=== PATIENT | female | born 1950 | race Caucasian/White ===

== ENCOUNTER 2016-11-16 01:58 | Inpatient (IN) | payer MEDICARE, BC ==
[~2016-11-16] VITALS: Ht 154.9 cm; Wt 81.0 kg
--- NOTE | ~2016-11-16 | OR ---
PATIENT'S NAME: MANJULA MORA [facility] AGE: 66 Y [address] ROOM: [place] [address] LOCATION: [facility] ADMIT DATE: 11/16/2016 OR/Procedure Report DISCHARGE DATE: FAMILY PHYSICIAN: PHYSICIAN, UNKNOWN ATTENDING PHYSICIAN: MILA LEDEZMA SURGEON: Mila Ledezma MD TAFE TEACHER: Griffin Salazar PA-C. DATE OF PROCEDURE: 11/16/2016 PREOPERATIVE DIAGNOSIS: Right 4-part proximal humerus fracture with displacement. POSTOPERATIVE DIAGNOSIS: Right 4-part proximal humerus fracture with displacement. PROCEDURE: 1. Open reduction and internal fixation of right 4-part (humeral head, neck, tuberosities)proximal humerus fracture. 2. Use of intraoperative fluoroscopy, less than 1 hour. ANESTHESIA: General endotracheal anesthesia. EBL: 100 mL. FLUIDS: See Anesthesia report. TOURNIQUET: None. SPECIMEN: None. COMPLICATIONS: None. DISPOSITION: Stable in PACU. COUNTS: All counts were correct. IMPLANTS: Synthes right proximal humeral periarticular locking plate and screws. INDICATION: Ms. Mora is a pleasant 66-year-old female who underwent the noted procedures above. The risks, benefits, and alternatives of pursuing a surgical intervention with the patient were discussed in detail. I marked the right upper extremity indicating the correct surgical site. Anesthesia was consulted for their perioperative evaluation of the patient, seeing that the patient has significant medical comorbidities. PATIENT'S NAME: MANJULA MORA [facility] AGE: 66 Y [address] ROOM: [place] [address] LOCATION: [facility] ADMIT DATE: 11/16/2016 OR/Procedure Report DISCHARGE DATE: FAMILY PHYSICIAN: PHYSICIAN, UNKNOWN ATTENDING PHYSICIAN: MILA LEDEZMA OPERATIVE REPORT IN DETAIL: The patient was taken from the holding area to the operating room. A time-out was performed. General endotracheal anesthesia was administered. Once the patient was anesthetized, she was positioned in beach chair. All other bony prominences were padded. The right upper extremity was then prepped and draped in a sterile fashion. I turned my attention to the right arm. A final time-out was performed. Perioperative antibiotics had been administered. I began with a deltopectoral incision on the right shoulder. I made this dissection through skin and subcutaneous tissue. I bluntly dissected through the subcutaneous tissue and used dissecting scissor to identify the deltopectoral interval. I bluntly dissected in order to access it. Using large retractors, I was able to retract around the humeral head and identify the fracture site. Using pulsatile lavage, I copiously irrigated the wound. A Bovie electrocautery device was used to maintain meticulous hemostasis. I introduced intraoperative fluoroscopy and identified the fracture. After freeing up the 2 larger fragments including the head and shaft, I noted that the tuberosities were also now reduced. I used [id number]-xrwlf clamps to reduce the tuberosities to the head. I subsequently selected and placed a proximal humeral plate, and I confirmed its position fluoroscopically. Using K-wires, I positioned the plate proximally. With my power plant assistant holding downward traction on the arm, I was subsequently able to drill a hole in the shaft of the humerus, measured fluoroscopically, and placed a compression screw into the shaft to hold the shaft out to length. After I achieved good fixation distally in the humerus, I then drilled for and placed a cancellous screw to help reduce the proximal aspect of the plate down to bone. The cancellous screw did help maintain the reduction in the head and the greater and lesser tuberosities proximally. Using locking drill guides, I drilled for, measured fluoroscopically, and subsequently placed fully threaded locking screws to achieve additional fixation in the humeral head. I turned my attention distally in the plate and then drilled for and placed a locking screw secondary to the fact that her bone was quite osteopenic and otherwise soft. I then removed the K-wires that were provisionally placed in the proximal aspect of the plate. I confirmed that my reduction of the head, greater and lesser tubercles, and humeral shaft. I took the shoulder through range of motion and found that the shoulder of the proximal humerus moved as a single unit indicating stable internal fixation. I fluoroscopically confirmed a satisfactory open reduction and internal fixation of a right 4-part proximal humerus fracture. The wound was then copiously irrigated again with normal sterile saline PATIENT'S NAME: MANJULA MORA [facility] AGE: 66 Y [address] ROOM: [address] [address] LOCATION: [facility] ADMIT DATE: 11/16/2016 OR/Procedure Report DISCHARGE DATE: FAMILY PHYSICIAN: PHYSICIAN, UNKNOWN ATTENDING PHYSICIAN: MILA LEDEZMA solution via pulsatile lavage. A layered closure began with 0 Vicryl suture to approximate the deltopectoral fascia followed by 2-0 Vicryl suture for the deeper subcutaneous tissue and Prineo (Dermabond and mesh wound closure system) to approximate the skin. After the Prineo was allowed to dry, a sterile Mepilex dressing was placed. A compressive dressing was placed on the right upper extremity in the form of Webril and Robbie bandage. The patient was then transferred to the operating room table onto a stretcher and extubated. Her right arm upper extremity was placed into a sling with a pillow beneath it. She was then brought to the recovery room in stable condition. There were no intraoperative complications noted. Of note, my PA, Griffin Salazar PA-C, played an integral role in the intraoperative care of this patient. This included preoperative positioning, intraoperative expert retraction, and closing and dressing functions. IMPRESSION: The patient is status post the noted procedures above. PLAN: The patient will be nonweightbearing on the right upper extremity. She will be instructed to keep the arm elevated. She will also be instructed to ice it. Postoperative pain control will be as ordered. Postoperative antibiotics will be per routine. She will be encouraged to work with Physical Therapy and Occupational Therapy for early ambulation and prevention of deconditioning. I will encourage range of motion of the elbow, forearm, wrist, and hand for now. I will continue to monitor the patient closely in the perioperative period. MD MOHAN ROLLE/modl /[id number] d: 11/16/16 2354 t: 11/17/16 0845, OPERATIVE SUMMARY
--- NOTE | ~2016-11-16 | CON ---
PATIENT'S NAME: MANJULA MORA [facility] AGE: 66 Y [address] ROOM: [id number] [place], [place] [address] LOCATION: N ADMIT DATE: 11/16/2016 Consultation DISCHARGE DATE: FAMILY PHYSICIAN: PHYSICIAN, UNKNOWN ATTENDING PHYSICIAN: MILA LEDEZMA DATE OF CONSULTATION: 11/16/2016 REFERRING PHYSICIAN: ASHLIE HERNANDEZ MD CHIEF COMPLAINT: Right shoulder pain. HISTORY OF PRESENT ILLNESS: Ms. Mora is a pleasant, 66-year-old female who presented to an outside emergency room after sustaining a fall last evening. She reports having fallen onto her right shoulder. The patient had a previous recent left hip replacement by my partner, Dr. Salazar. She has assisted ambulation with the use of a rolling walker secondary to this surgery. The patient reports that when she fell, she experienced immediate right shoulder pain, discomfort, difficulty weightbearing through the right upper extremity, and severe pain with any attempted manipulation of the extremity. Alleviating factors included resting, icing, and elevating. She presented to an outside emergency room where plain x-rays were obtained, and she was diagnosed with a right proximal humerus fracture. I was contacted by the outside emergency room and accepted the patient for transfer for definitive orthopedic care. Currently, the patient denies any constitutional symptoms such as fever, chills, or night sweats. She also denies any dizziness, chest pain, shortness of breath, blurred vision, nausea, vomiting, or diarrhea. REVIEW OF SYSTEMS: A 10-point review of systems is otherwise as mentioned above in the HPI. The patient's issue is musculoskeletal and pertains to the right upper extremity where there is pain, swelling, and extreme discomfort with manipulation of the right shoulder. PAST MEDICAL HISTORY: Includes hypercholesterolemia; hypertension; depression; diabetes mellitus; GERD; and obstructive sleep apnea, on BiPAP. PAST SURGICAL HISTORY: Includes a left total hip arthroplasty by Dr. aSlazar in July of 2016. ALLERGIES: INCLUDE OXYCODONE, ASPARTAME, HYDROMORPHONE, AND SHELLFISH. PATIENT'S NAME: MANJULA MORA [facility] AGE: 66 Y [address] ROOM: [id number] [place], [place] [address] LOCATION: N ADMIT DATE: 11/16/2016 Consultation DISCHARGE DATE: FAMILY PHYSICIAN: PHYSICIAN, UNKNOWN ATTENDING PHYSICIAN: MILA LEDEZMA HOME MEDICATIONS: Include: 1. Acetaminophen. 2. Ropinirole. 3. Aspirin. 4. Atorvastatin. 5. Multivitamin. 6. Pregabalin. 7. Rivaroxaban. 8. Calcium carbonate. 9. Omeprazole. 10. Levothyroxine. 11. Tramadol. 12. Duloxetine. 13. Ramipril. 14. Krill oil. 15. [place]-3. 16. Vitamin E. 17. Betaxolol. 18. Insulin Detemir. 19. Docusate sodium. 20. Furosemide. 21. Colace. 22. Calciferol. 23. Celecoxib. 24. Insulin aspart. 25. Brimonidine. SOCIAL HISTORY: The patient denies any alcohol, tobacco, or illicit drug use. She is still currently recovering from a left total hip replacement by Dr. Salazar for which she uses a rolling walker to assist with ambulation. FAMILY HISTORY: There is a family history of diabetes mellitus in the maternal and paternal sides of the family. PHYSICAL EXAMINATION: VITAL SIGNS. She is afebrile. Currently, vital signs are stable. She is in no acute distress. GENERAL: No acute distress. Awake, alert, and oriented x3. The patient is actively conversing with me at the bedside. HEENT: Normocephalic and atraumatic. Extraocular movements are intact. She has a BiPAP in place. NECK: Supple. Trachea is in the midline. PATIENT'S NAME: MANJULA MORA [facility] AGE: 66 Y [address] ROOM: [address] [address] LOCATION: [facility] ADMIT DATE: 11/16/2016 Consultation DISCHARGE DATE: FAMILY PHYSICIAN: PHYSICIAN, UNKNOWN ATTENDING PHYSICIAN: MILA LEDEZMA CARDIOVASCULAR: Regular rate and rhythm. CHEST: Normal and symmetric respirations are observed bilaterally. ABDOMEN: Soft, nontender, and nondistended. PELVIS: Stable. MUSCULOSKELETAL: Right upper extremity focal examination: The patient's right upper extremity reveals that she is grossly neurologically intact distally. Compartments of the arm, forearm, and hand are soft. There is swelling, ecchymosis, and tenderness to palpation about the shoulder girdle. The patient has sensation intact to light touch to the AIN/PIN/median/radial/ulnar nerve distributions. She is actively able to extend and flex her wrist against resistance. She has full range of motion of her fingers. There is a palpable radial pulse and good capillary refill in the digits. Currently, the patient does have a sling in place. The soft tissue is intact circumferentially. Left upper extremity focal examination: The patient's left upper extremity reveals that she is grossly neurologically intact distally. Compartments of the arm, forearm, and hand are soft. There is good capillary refill in the digits and a palpable radial pulse. She has full unrestricted range of motion of her elbow, forearm, wrist, and hand on this side. She has good habilitative interventionist strength. Sensation is intact to light touch throughout the AIN/PIN/median/radial/ulnar nerve distributions. IMAGING: Plain radiographs of the right shoulder reveal evidence of a right 3- or 4- part proximal humerus fracture that is difficult to obtain secondary to poor quality imaging and robust soft tissue shadow. LABORATORY VALUES: CBC reveals a hemoglobin of 10.8, hematocrit of 33.7, white blood cell count of 10.5, and platelet count of 234. Chem-7 reveals a sodium of 141, potassium of 4.0, chloride of 104, CO2 of 28, BUN 38, creatinine 1.6, and glucose of 264. Coagulation profile reveals a PT of 10.6, INR of 1.0, and PTT of 28. Cardiac enzymes shows a troponin of less than 0.04 and CK of 96. Electrolytes: Calcium is 8.7. Recent Accu-Chek blood glucose level reveals a glucose of 267. IMPRESSION: Right 3- or 4-part proximal humerus fracture with displacement of the humeral shaft. PLAN: I had a long discussion with the patient regarding the right upper extremity. She sustained a right proximal humerus fracture. The plain x-rays that were obtained are inadequate for definitive diagnosis. I am going to request a CT scan of the right shoulder to further elucidate the fracture pattern. I am advocating for open reduction and internal fixation of her right proximal PATIENT'S NAME: MANJULA MORA [facility] AGE: 66 Y [address] ROOM: [place] [address] LOCATION: [facility] ADMIT DATE: 11/16/2016 Consultation DISCHARGE DATE: FAMILY PHYSICIAN: PHYSICIAN, UNKNOWN ATTENDING PHYSICIAN: MILA LEDEZMA humerus. I have discussed the risks, benefits, and alternatives to pursuing a surgical intervention in detail. I discussed the risks of anesthesia, infection, bleeding, and injury to neurovascular structures about the right upper extremity. I also discussed conservative care. The patient has elected to proceed with surgery. Informed consent was obtained. The Hospitalist Service is in the process of medically optimizing, and the patient is pending clearance for the OR. An echo was obtained this morning. Await for the results of this, we will obtain a CT scan of the right shoulder. The patient will be nonweightbearing on the right upper extremity. Seeing that the patient recently had her left hip replaced, she will be a full-assist, seeing that she will be unable to use a rolling walker because of the right upper extremity deficit. I would like to avoid her being a fall risk in the hospital setting going forward. The patient is currently n.p.o. this morning. We will plan for surgery as soon as this afternoon. I have answered all the patient's questions today in the presence of her sister at the bedside. MD MOHAN ROLLE/chelita /[id number] d: 11/16/16 1335 t: 11/16/16 1642, CONSULTATION REPORT
--- NOTE | ~2016-11-16 | DS ---
PATIENT'S NAME: MANJULA MORA [facility] AGE: 66 Y [address] ROOM: [place] [address] LOCATION: [facility] ADMIT DATE: 11/16/2016 Discharge Summary DISCHARGE DATE: 11/19/2016 FAMILY PHYSICIAN: Physician, Unknown ATTENDING PHYSICIAN: Umberto Alberto DIAGNOSIS: Right 3 to 4-part proximal humerus fracture with displacement of humeral shaft. DISCHARGE DIAGNOSIS: Right 3 to 4-part proximal humerus fracture with displacement of humeral shaft. SECONDARY DIAGNOSES: 1. Hypercholesterolemia. 2. Hypertension. 3. Depression. 4. Diabetes mellitus. 5. Gastroesophageal reflux disease. 6. Obstructive sleep apnea, on BiPAP. 7. Asthma. 8. History of cerebrovascular accident. 9. Long-term anticoagulation. 10. Hypothyroidism. CONSULTATIONS: To the hospitalist service for medical management. PROCEDURES: The patient underwent the following procedure on November 16, 2016, by Dr. Alberto: 1. Open reduction and internal fixation of four-part (humeral head, neck, tuberosities) proximal humerus fractures. HISTORY OF PRESENT ILLNESS: [facility]. The patient had her left hip replaced by Dr. Alejo in the past and ambulated with the use of a rolling walker, secondary to the hip replacement. The patient had sustained a fall the evening prior to admission. She reported falling on her right shoulder and had immediate pain at that time along with bearing weight through her right upper extremity. The patient had severe pain with manipulation of the extremity. Alleviating factor included rest, ice, and elevation. X-rays in the outlying emergency room showed a right proximal humerus fracture. Dr. Alberto was contacted by the outside emergency room for orthopedic care. HOSPITAL COURSE: On November 16, 2016, the patient underwent the above-described procedure and tolerated the procedure well. She was kept under adequate pain control of her right upper extremity. She did work with physical therapy and PATIENT'S NAME: MANJULA MORA [facility] AGE: 66 Y [address] ROOM: [place] [address] LOCATION: [facility] ADMIT DATE: 11/16/2016 Discharge Summary DISCHARGE DATE: 11/19/2016 FAMILY PHYSICIAN: Physician, Unknown ATTENDING PHYSICIAN: Umberto Alberto occupational therapy on range of motion of her right wrist, hand, and elbow. During her admission, she was kept nonweightbearing of the right upper extremity. The patient did have an acute kidney injury with a creatinine of 1.6 on admission that did improve prior to discharge. She also had some blood loss anemia that was monitored during her admission, hemoglobin dropping from approximately 10.8 to 9.4. The patient was determined to be stable for transfer to the [facility] from November 19, 2016. DISCHARGE INSTRUCTIONS: The patient was transferred to the [facility] for skilled rehab. She is to follow up with Dr. Alberto in approximately two weeks after transfer for her initial followup visits with x-rays at that time. She is also to follow up with Dr. Palacios for medical followup. She is to eat a diabetic diet. She is to be nonweightbearing in the right upper extremity. She is to continue with physical and occupational therapy for gentle range of motion of her right hand, wrist, and elbow. Her oxygen levels should be kept above 90%. She is to have Accu-Cheks a.c. and h.s. Please see transfer reconciliation form for medications. DISCHARGE TRANSFER STATUS: Good. MACIEJ AELJO PA-C FOR MD TIM ROLLE/chelita /[id number] d: 11/30/16 0426 t: 12/06/16 1421, DISCHARGE SUMMARY
--- NOTE | ~2016-11-16 | CON ---
PATIENT'S NAME: MANJULA MORA [facility] AGE: 66 Y [address] ROOM: G3315 [place], [place] [address] LOCATION: G3N ADMIT DATE: 11/16/2016 Consultation DISCHARGE DATE: FAMILY PHYSICIAN: PHYSICIAN, UNKNOWN ATTENDING PHYSICIAN: MILA LEDEZMA DATE OF CONSULTATION: 11/16/2016 REFERRING PHYSICIAN: ASHLIE HERNANDEZ MD REASON FOR CONSULT: Medical management. HISTORY OF PRESENT ILLNESS: This is a 66-year-old female with a history of atrial fibrillation, on long- term anticoagulation with Xarelto and history of CVA in the past. The patient states that she got up to use the restroom today and then subsequently had a fall. She was not lightheaded prior to the fall. She did not have a syncopal episode. The patient states that she did not hit her head or lose consciousness. She fell down on her bottom and then she hit the right side of her arm. She then started having intense pain in her right shoulder. Currently, the patient rates her pain as 9/10 in intensity. She is currently getting pain medications per Orthopedics. The patient was taken to an [facility] ER and was found to have right humerus fracture. She was then transferred to [facility] under Dr. Ledezma's care. At the time of my examination, the patient denies any lightheadedness. Denies any head trauma, loss of consciousness, or seizures. She complains of pain in her right shoulder that she currently rates as 9/10 in intensity. Her right arm is currently immobilized in a sling. She denies any neck pain, back pain, or hip pain. Denies any other pain at this point of time. Denies any abdominal pain, diarrhea, or constipation. Denies any chest pain or shortness of breath. She has obstructive sleep apnea and uses CPAP at h.s. Denies any other complaints at this point of time. The patient has a history of long-term anticoagulation and is on Xarelto, her last Xarelto dose was on 11/14/2016 at night per the patient. She did not take her medication last night on 11/15/2016 per the patient. She has a history of strokes in the past but currently does not have any neurologic deficits per the patient. REVIEW OF SYSTEMS: A 10-point review of systems was done and was, otherwise, negative except as mentioned above. PAST MEDICAL HISTORY: PATIENT'S NAME: ABBYMANJULA Rock [facility] AGE: 66 Y [address] ROOM: [place] [address] LOCATION: [facility] ADMIT DATE: 11/16/2016 Consultation DISCHARGE DATE: FAMILY PHYSICIAN: PHYSICIAN, UNKNOWN ATTENDING PHYSICIAN: MILA LEDEZMA Reviewed. HOME MEDICATIONS: Per MAR. FAMILY HISTORY: Mother from COPD. Father from asthma and emphysema. Brother from myocardial infarction and had lung cancer. Another brother and sister in good health. PAST SURGICAL HISTORY: 1. Hysterectomy. 2. Appendectomy. 3. PTCA. 4. Bladder repair surgery. 5. Fractured right hip with hardware put in. 6. Bilateral cataract surgery. 7. Left total hip. PAST MEDICAL HISTORY: 1. History of diabetes mellitus. 2. Diabetic neuropathy. 3. Diabetic retinopathy. 4. Obstructive sleep apnea, on CPAP. 5. Atrial fibrillation. 6. Legally blind. 7. Dyslipidemia. 8. Hypertension. 9. Asthma. 10. Arthritis. 11. History of CVA. 12. Long-term anticoagulation. 13. Diabetes mellitus type 2. 14. Hypothyroidism, on replacement therapy. SOCIAL HISTORY: Denies smoking or alcohol use. PHYSICAL EXAMINATION: VITAL SIGNS: Temperature 97.6, pulse 90 and regular, respirations 14, blood pressure 150/67, saturation 88% on room air. GENERAL: The patient is alert and oriented x3. She answers all questions appropriately. No acute distress. HEENT: Head; normocephalic, atraumatic. Pupils are equal, round, and reactive to light. Extraocular muscles intact. No scleral icterus noted. No PATIENT'S NAME: ABBYMANJULA SWEET [facility] AGE: 66 Y [address] ROOM: [place] [address] LOCATION: [facility] ADMIT DATE: 11/16/2016 Consultation DISCHARGE DATE: FAMILY PHYSICIAN: PHYSICIAN, UNKNOWN ATTENDING PHYSICIAN: MILA LEDEZMA conjunctival injection noted. Nares clear. Throat clear. Mucous membranes moist. NECK: Supple. No nuchal rigidity. HEART: Regular rate and rhythm. LUNGS: Bilateral wheezes noted. Otherwise, clear to auscultation bilaterally. Air entry equal and good bilaterally. ABDOMEN: Soft, nontender, nondistended. Bowel sounds are present. EXTREMITIES: No clubbing, cyanosis, or edema. Right upper extremity currently in a sling. VASCULAR: Pulses 2+ distally bilaterally. NEUROLOGIC: The patient is alert and oriented x3. Follows all commands. Moves all extremities. Cranial nerves 2 through 12 grossly intact. Strength could not be assessed in right upper extremity since it is immobilized. Strength 5/5, left upper extremity and bilateral lower extremities. Sensation intact in bilateral upper and lower extremities. Cranial nerves 2 through 12 grossly intact. DIAGNOSTIC STUDIES: X-ray from the referral hospital showed right humerus fracture. Studies were done at [facility]. A 2D echocardiogram pending. CBC showed a white count of 10.5, hemoglobin 10.8, hematocrit 33.7, platelets 234. BMP showed sodium 141, potassium 4.0, chloride 104, bicarb 28, BUN 38, creatinine 1.6, glucose 264, calcium 8.7, GFR 32. PT 10.6, INR 1.0, and PTT 28. Chest x- ray done at [facility] showed no acute cardiopulmonary abnormality, elevation of the right hemidiaphragm noted. EKG showed sinus rhythm with no acute ST changes, rate of 86 beats per minute. ASSESSMENT AND PLAN: A 66-year-old female presenting status post fall and right humerus fracture. 1. Status post fall. The patient was not syncopal prior to the fall. This was an accidental fall. 2. Right humerus fracture. Further plan and management for definitive orthopedic treatment for Dr. Ledezma. We will control the pain with morphine for now. 3. History of atrial fibrillation. Currently rate controlled. Continue home medication. 4. Long-term anticoagulation. The patient is on Xarelto. We will need to wait and watch and avoid surgery given the fact that she is on Xarelto. Hold Xarelto for now. 5. History of cerebrovascular accident in the past. 6. History of diabetes mellitus. Continue home insulin regimen. I will place her on moderate sliding scale insulin for now. Regular Accu-Cheks will be done for the patient. 7. Hypertension. Continue home medications. 8. Dyslipidemia. Continue statin. PATIENT'S NAME: MANJULA MORA [facility] AGE: 66 Y [address] ROOM: [address] [address] LOCATION: [facility] ADMIT DATE: 11/16/2016 Consultation DISCHARGE DATE: FAMILY PHYSICIAN: PHYSICIAN, UNKNOWN ATTENDING PHYSICIAN: MILA LEDEZMA 9. Obstructive sleep apnea, on CPAP. Continue per home settings. 10. History of asthma. RT to score and treat. O2 as needed to keep sats more than 90%. 11. History of congestive heart failure. Lasix per home regimen. I will obtain a 2D echo. Her last echo apparently was in 2014. 12. Hypothyroidism. Continue replacement therapy with levothyroxine per home regimen. 13. Code status, full code. Discussed with the patient at the time of admission. 14. Preoperative clearance. The patient is on Xarelto. We will have to wait for Xarelto effect to be reversed. The patient is not cleared for surgery. She will also get a 2D echo in a.m. We will consider a Cardiology consult if there are changes on the echocardiogram. ASHLIE HERNANDEZ MD MT/chelita /[id number] d: 11/16/16718 t: 11/23/16 1004, CONSULTATION REPORT
--- NOTE | ~2016-11-16 | ECHO ---
Transthoracic Echocardiography Report (TTE) Demographics Patient Name MANJULA MORA Date of Study 11/16/2016 Patient Number [id number] Visit Number [id number] Date of 1950 Room Number G3315 Accession Number [id number] Gender Female Age 66 year(s) Referring Moe Somers Md Central Service Technician Low Shipman RVT Physician Sydni Calderon Physician Interpreting Kianna Owusu MD Communications Technologist Physician Supervising Ordering Physician Raúl Lay MD, MD/MLP Nurse Stress Delivery Sales Worker Conclusions Contractility Score Summary Normal Left Ventricular contractility was noted. Summary The estimated left ventricular ejection fraction is 60-65% The left ventricle is normal in size . Moderate concentric left ventricular hypertrophy. Diastolic assessment reveals Grade I diastolic dysfunction. Moderate mitral annular calcification. Mild-moderate tricuspid regurgitation by color Doppler. There is moderate pulmonary hypertension. The pulmonary pressure (RVSP) is 45 mmHg. Procedure Type of Study TTE procedure:2D Echocardiogram, M-Mode, Doppler , Color Doppler. Procedure Date Date: 11/16/2016 Start: 07:14 AM Study Location: Inpatient Portable Technical Quality: Fair Indications:Congestive heart failure and Atrial fibrillation. Appropriate Use Criteria: 9 Patient Status: Routine HR: 82 bpm BP: 150/67 mmHg M-Mode/2D Measurements LV Diastolic Dimension: 3.61 cm LV Systolic Dimension: 2.62 cm LV Septum Diastolic: 1.5 cm LV PW Diastolic: 1.48 cm AO Root Dimension: 2.9 cm Cardiac Output: 5.75 l/min AV Cusp Separation: 1.2 cm RV Diastolic Dimension: 2.92 cm LA volume: 37 ml LVOT: 1.7 cm RV Base: 3.31 cm LVOT VTI: 30.9 cm RV Mid: 2.99 cm LV Stroke volume: 70.1 ml TAPSE: 1.65 cm TDI-S': 10.4 cm/s Doppler Measurements AV Peak Velocity: 1.78 m/s MV Peak E-Wave: 0.87 m/s AV Peak Gradient: 12.67 mmHg MV Peak A-Wave: 1.06 m/s AV Mean Gradient: 7 mmHg MV E/A Ratio: 0.82 LVOT Peak Velocity: 1.54 m/s MV P1/2t: 75 msec TR Gradient:37.45 mmHg PV Peak Velocity: 0.99 m/s Estimated RAP:8 mmHg PV Peak Gradient: 3.94 mmHg Estimated RVSP: 45 mmHg Estimated PASP: 45.45 mmHg E' Septal Velocity: 0.06 m/s A' Septal Velocity: 0.08 m/s E' Lateral Velocity: 0.08 m/s A' Lateral Velocity: 0.1 m/s Findings Left Ventricle The left ventricle is normal in size . Moderate concentric left ventricular hypertrophy. Diastolic assessment reveals Grade I diastolic dysfunction. Right Ventricle Normal right ventricle structure and function. Left Atrium Normal left atrial size. Right Atrium Normal right atrial size. IVC measures 1.68 cm with partial inspiratory collapse. Mitral Valve Moderate mitral annular calcification. Trivial mitral regurgitation by color Doppler. Aortic Valve The aortic valve is moderately sclerotic. Tricuspid Valve Normal tricuspid valve structure and function. Mild-moderate tricuspid regurgitation by color Doppler. There is moderate pulmonary hypertension. The pulmonary pressure (RVSP) is 45 mmHg. Pulmonic Valve Normal pulmonic valve structure and function. Trivial pulmonic valve regurgitation by color Doppler. Pericardial Effusion No evidence of pericardial effusion. Miscellaneous Visualized portions of the aortic root and ascending aorta appear normal in size. Pleural Effusion No evidence of pleural effusion. Contractility Score LV regional wall motion:(0-Non visualized 1-Normal 2-Hypokinesis 3-Akinesis 4-Dyskinesis 5-Aneurysm) Signature dtt: Umer Hutchison (cardio) dtd: 11/16/16 0714 Physician Self Edit
[~2016-11-16 01:58] MED LIST: ACETAMINOPHEN650 M2 PO; ASPIR 8181 MG PO; ATIVAN0.5 MG/1 M PO; BETOPTIC0.5 % OPHTH; CALCIUM500 MG PO; CELEBREX200 MG PO; CITRACAL950 MG PO; COREG 3.1253.125 MG PO; COREG25 MG; COREG25 MG PO; CYMBALTA20 MG PO; DRISDOL 5050000 UNIT PO; DRISDOL50000 UNIT PO; DULCOLAX10 MG PO; ELIQUIS2.5 MG PO; FISH OIL WITH1 EACH PO; FLEET ENEMA133 ML R; FLEXERIL10 MG PO; FLORASTOR250 MG PO; GLUCOSE4 GM PO; HYDROCORT 1% CR30 GM TOP; KLOR-CON M2020 MEQ PO; LANOXIN (DIGI125 MCG PO; LANTUS100 UNIT/1 SUB-Q; LASIX40 MG PO; LEVEMIR100 UNIT/1 SUB-Q; LEVOTHROID (SY50 MCG PO; LIPITOR10 M1 PO; LOPRESSOR50 M1 PO; LYRICA75 MG PO; MILK OF MA400 MG/5 M PO; MIRALAX17 GM PO; MULTIVITAMINS1 EAC1 PO; MYCOSTATIN CR15 GM TOP; NEOSPORIN1 PKT TOP; NIFEREX-150 FOR1 CAP PO; NITROSTAT0.4 MG SL; NORCO 5-325 MG1 TAB PO; NORVASC5 MG PO; NOVOLOG100 UNIT/M SUB-Q; NUCYNTA50 MG PO; PAIN & FEVER500 MG PO; PRESERVISION A1 EAC2 PO; PRILOSEC20 MG PO; PRINIVIL OR ZES10 MG PO; PROZAC40 MG PO; RAMIPRIL2.5 MG PO; ROPINIROLE HC0.25 MG PO; TYLENOL PM EX-1 EACH PO; ULORIC40 MG PO; ULTRAM50 MG PO; VITAMIN D-32000 UNI1 PO; VITAMIN E400 UNI2 PO; XARELTO15 MG PO; ZANAFLEX2 MG PO; ZAROXOLYN5 MG PO
[2016-11-16] MEDS ORDERED: DULCOLAX STOOL100 MG PO (03:20)
[2016-11-16] MEDS ORDERED: LASIX20 MG PO (03:25)
--- NOTE | 2016-11-16 03:25 | NUR ---
Patient states she was ambulating to the bathroom at home with her walker, when she fell after picking up her walker to get over the small lip between the pfeiffer and bathroom. She denies hitting her head or any LOC. Patient is legally katina. Wears CPAP at night for sleep apnea. Is diabetic. States she just had an A1-C done yesterday, but does not know what the results are yet. Patient has a saline lock to left posterior forearm and a ramires cath.
[2016-11-16] MEDS ORDERED: VITAMIN D-32000 UNI1 PO (03:38)
[2016-11-16] MEDS ORDERED: CELEBREX200 MG PO (03:38)
[2016-11-16] MEDS ORDERED: NOVOLOG FL100 UNIT/1 SUB-Q (03:41)
[2016-11-16] MEDS ORDERED: ALPHAGAN *P* 0.15 ML OPHTH (03:50)
[2016-11-16] MEDS ORDERED: BETOPTIC-S 0.20.25 % OPHTH (03:52)
[2016-11-16 04:48] LABS: BASOPHIL % 0.4 %; EOSINOPHIL # 0.2 K/uL (0.0-0.5); EOSINOPHIL % 2.1 %; HEMOGLOBIN 10.8 g/dL (10.0-15.0); IMMATURE GRANULOCYTE # 0.1 K/uL (0.0-0.3); IMMATURE GRANULOCYTE % 0.7 %; LYMPHOCYTE # 1.5 K/uL (0.8-4.0); MONOCYTE # 0.9 K/uL (0.0-1.0); MONOCYTE % 8.4 %; MPV 10.6 fl (9.4-12.4); NEUTROPHIL # (ANC) 7.8 K/uL (1.8-7.8); NEUTROPHIL % 74.4 %; NRBC % 0 /100WBC (0-0.00); PLATELET COUNT 234 K/uL (150-450); RDW-CV 15.5 % (11.9-14.6); WBC 10.5 K/uL (4.0-11.0)
[2016-11-16 04:50] LABS: HEMATOCRIT 33.7 % (33.0-46.0); MCH 28.6 pg (27.0-34.0); MCV 89.4 fl (83.0-98.0); RBC 3.77 M/uL (3.50-5.50)
[2016-11-16 04:58] LABS: PROTIME 10.6 SECONDS (9.6-11.1); PTT 28 SECONDS (25-32)
[2016-11-16 05:08] LABS: CALCIUM 8.7 mg/dL (8.5-10.5); CREATININE 1.6 mg/dL (0.5-1.1)
--- NOTE | 2016-11-16 05:18 | NUR ---
Shift Summary: Patient admitted this am for right humerous fx. 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 She has diabetic neuropathy to hands/feet. Has a ramires that was placed in [place]. Given MS 2mg IV for pain. Is NPO. has not seen her yet to give R&B. Her POA is in the room and will sign any paperwork that needs signing.
[2016-11-16 06:14] LABS: CPK 96 IU/L (21-215)
--- NOTE | 2016-11-16 11:45 | NUR ---
Introduced self and role of care management to patient and her caregiver. Patient lives with her caregiver so she is with her 14/03. Patient uses a walker at home and does have a wheel chair. She has access to a cane but is concerned as she will have to use the cane with her left hand. Told her therapy will work with her after surgery and recommend to her what device would be best for her. Patient is legally blind and says it does present challenges. She and her caregiver have been friends for years and when she lost her eyesight a few years ago she moved in with her friend so she could help her. Asked them about HHC but they do not feel she needs it at this time. Will follow.
--- NOTE | 2016-11-16 14:02 | NUR ---
PT TAKEN DOWN TO OR AT 1230.
--- NOTE | 2016-11-16 17:58 | NUR ---
Significant Event: PT DOWN TO OR AT 1230. HAS NOT RETURNED TO THE FLOOR. FAMILY WITH PT. PT IS BLIND. Follow up:
[2016-11-16 20:53] LABS: BICARBONATE 25.6 mmol/L (18.0-23.0); PCO2 38 mmHg (35-45); PO2 437 mmHg (80-90); SODIUM 137 mEq/L (135-145)
[2016-11-16 20:54] LABS: POTASSIUM 3.9 mEq/L (3.7-5.1)
--- NOTE | 2016-11-17 04:17 | NUR ---
Patient very drowsy most of the shift after surgery, held levemir due to drowsines per MD, patient became more alert and confused at around 0400, she was pulling at tubes and took CPAP off, was given Morphine and a Narco at this time, csm to right arm with in normal limits, , refused ice at 0400
[2016-11-17 04:26] LABS: ALBUMIN 2.8 gm/dL (3.5-5.0); ANION GAP 16.5 (10.0-19.0); CALCIUM 8.5 mg/dL (8.5-10.5); CREATININE 1.4 mg/dL (0.5-1.1); PHOSPHORUS 3.8 mg/dL (2.5-4.9); POTASSIUM 4.5 mMol/L (3.7-5.1)
[2016-11-17 04:35] LABS: BASOPHIL % 0.3 %; EOSINOPHIL # 0.1 K/uL (0.0-0.5); EOSINOPHIL % 1.2 %; HEMATOCRIT 29.9 % (33.0-46.0); HEMOGLOBIN 9.6 g/dL (10.0-15.0); IMMATURE GRANULOCYTE # 0.1 K/uL (0.0-0.3); IMMATURE GRANULOCYTE % 0.5 %; LYMPHOCYTE # 0.9 K/uL (0.8-4.0); MCH 28.8 pg (27.0-34.0); MCHC 32.1 gm/dL (32.0-36.5); MCV 89.8 fl (83.0-98.0); MONOCYTE # 0.9 K/uL (0.0-1.0); MONOCYTE % 9.4 %; MPV 10.9 fl (9.4-12.4); NEUTROPHIL # (ANC) 7.4 K/uL (1.8-7.8); NEUTROPHIL % 78.6 %; NRBC % 0 /100WBC (0-0.00); RBC 3.33 M/uL (3.50-5.50); RDW-CV 15.7 % (11.9-14.6); WBC 9.4 K/uL (4.0-11.0)
[2016-11-17 04:38] LABS: PLATELET COUNT 185 K/uL (150-450)
--- NOTE | 2016-11-17 12:08 | NUR ---
[facility] note: 1030 Upon entering patient's room, the OT and PT personnel were working with the patient. CDE briefly introduced self to patient and left the Diabetes Survival Skills Checklist with the patient along with the Diabetes Management Booklet.
--- NOTE | 2016-11-17 12:30 | NUR ---
ATTEMPTED TO SPEAK TO MANJULA CRUZ CM AND OUR ROLE. SHE IS VERY DROWSEY AND KEEPS FALLING ASLEEP. SHE WAS ABLE TO TELL ME THAT SHE WILL HAVE HELP FROM A FRIEND. I PRESENTED TO HER THE OPTION OF C. AND SHE IS IN AGREEMENT TO THIS. WILL TRY TO MEET WITH PATIENT AND HER FRIEND LATER. MANJULA ANTICIPATES THAT HER FRIEND TUNG WILL BE HERE LATER THIS AFTERNOON.
--- NOTE | 2016-11-17 14:07 | NUR ---
Diabetes Center note: 1230 Upon entering patient's room, patient is sitting in chair and is drowsy. Patient states she is waiting for cottage cheese, when asked if there is anything that we can do to assist her with her diabetes management at home. Patient is provided the Diabetes Management booklet and Diabetes Survival Skills checklist, will check with patient on 11/18/16 to assess educational needs and provide education at appropriate time.
--- NOTE | 2016-11-17 16:00 | NUR ---
Checked and patient's friend is not here yet. Talked with patient and she says she is having a lot of pain issues and was only able to sit on the edge of the bed with therapy. Asked her if she wants to look at SNF and she still is hoping to go home. She is interested in HHC and Lacie put F2F form on the chart. Care Management will check back with her tomorrow. Will follow.
--- NOTE | 2016-11-17 17:54 | NUR ---
Significant Event: PT ALERT BUT QUIET MOST OF THE SHIFT. UP IN THE RECLINER WITH 2 ASSIST. PT IS BLIND. 25 % SIGHT IN RT EYE. NEEDS ASSIST WITH MEALS. TAKES MEDS WHOLE . NORCO GIVEN AT 1730. JUGULAR RT IV LINE FLUSHES WELL. IV FLUIDS DC'D TODAY/ WHITESIDE CATH PRESENT. 500 OUT PLUS SOME LEAKED OUT. DRESSING TO RT SHOURLD AND SHOUDL SLING INTACT. PT'S CAREGIVER DID NOT COME TODAY. HOME POSSIBLE ON TUESDAY OR SAT. Follow up:
--- NOTE | 2016-11-18 04:56 | NUR ---
Shift Summary: Patient very emotional most of the time. Tearful. Can stand and take steps with quad cane. She is blind and needs fed. Has a double lumen right IJ that flushes well with good blood return. Last [place] was at 0403. Last IV morphine at 2352. Patient is diabetic and on AC&HS accuchecks. On moderate SS. Has diabetic neuropathy to fingers/toes/bottom of feet.
[2016-11-18 12:11] LABS: ALBUMIN 2.5 gm/dL (3.5-5.0); ANION GAP 11.5 (10.0-19.0); CALCIUM 9.3 mg/dL (8.5-10.5); CREATININE 1.1 mg/dL (0.5-1.1); PHOSPHORUS 2.2 mg/dL (2.5-4.9); POTASSIUM 4.5 mMol/L (3.7-5.1)
--- NOTE | 2016-11-18 13:20 | NUR ---
Talked with LISA Lenz for hospitalist and reviewed chart. Skilled stay somewhere recommended before going home. Ready for dc tomorrow. Talked with patient, then called DPOA friend Lorna Cameron, and talked with patient again. Pt sees Dr Palacios as primary care physician, their first choice of skilled stay somewhere is [facility] (physician admission nurse okay with them to see her while there), then [facility] in [place], then [facility]. Started referrals all three places. Left messages and faxed referral to Sundar at [facility] phone [phone] fax [phone], Hanane in social work at [facility] [phone] and fax [phone] and Jonny, warranty administrator at [facility] [phone] fax [phone]. Waiting call back to see who can accept pt tomorrow. Pt apparently has been at [facility] a few weeks ago for a skilled stay.
--- NOTE | 2016-11-18 14:22 | NUR ---
Received call back from Sundar at [facility]. Pt does not have a primary care physician in [place], [place] 2 physicians who are going to be there tomorrow financial professional and in the office and they both declined accepting pt as she sees primary care provider elsewhere so [facility] unable to accept. Waiting to hear back from [facility] in [place] and [place] [facility] (SNF). Will follow.
--- NOTE | 2016-11-18 14:47 | NUR ---
Received call from Hanane, nephrology social worker and Geovanna CASTLE at [facility], they will accept pt to [facility] tomorrow. I checked and pt has used 25 skilled days here and 42 at [facility] so a total of 67 skilled days used and dc from [facility] on 10/28/16 so hasn't had 60 day break in spell of illness to regenerate all her days, has 33 skilled days left. [facility] aware of that (per medicare rev runner 41 days left, but I checked actual days used at [facility] and only has 33 days left, so I left Hanane a voicemail with that info and when she dc from there). I called pt friend Lorna on her cell phone [phone] and let her know [facility] can't accept but that [place] will accept, she is okay with that, and cancelled referral to [facility]. I told Lorna to pick up operator portable O2 at [facility] on her way here tomorrow and bring up to room when she comes to transport pt, she said she would do that, told her to be here between 10-11 in the morning and she said she will. Will let pt and physicians know plan.
--- NOTE | 2016-11-18 15:12 | NUR ---
Diabetes center note: 1330 Attempted several times to assist with completing the Diabetes Survival Skills checklist, but patient is refusing due to having pain in arm. Diabetes management booklet remains at bedside.
--- NOTE | 2016-11-18 19:38 | NUR ---
Significant Event: PREFERS TO BE CALLED "LAURA"..IS BLIND...NEEDS ASSIST WITH MEALS. SEEMS TO DO BETTER AT EATING IF SHE HOLDS SPOON/FORK AND HELP HER WITH GETTING THE FOOD. ABLE TO SWOLLOW PILLS WHOLE, MAY TAKE 2-3 SMALL ONES AT A TIME...HAS VOIDED X1 THIS SHIFT SINCE STEVO INIGUEZ AT 0630. DID HAVE IV LASIX AT 1530....HAD NORCO 1 TAB X2 LAST AT 1530....ACCUCHECKS TREATED PER SS INSULIN....CSM GOOD IN RIGHT FINGERS, DRSG D/I, SHOULDER ECCHY/EDEMATOUS. CLIFE DRSG D/I TO RIGHT FOREARM....HAS HISTORY HAVING LEFT TOTAL HIP IN JULY 2016... Follow up:
--- NOTE | 2016-11-19 03:32 | NUR ---
Shift Summary: Patient can transfer to [facility] with two assist. Needs verbal cues. She is blind. Needs assistance with meals. Wears a brief for dribbling. Gave last norco at 0227. She is diabetic and on a moderate SS. Will transfer to swingbed today.
--- NOTE | 2016-11-19 06:49 | NUR ---
[id number] Supervised [facility] Packaging Manager.
--- NOTE | 2016-11-19 09:30 | NUR ---
Hanane from [facility] called, still planning a 1100 discharge, awaiting orders to be finished up, then will fax. 1030 Gave nurse Claudia the phone number for nurse report. 1045 Claudia reported friend was not here to transport yet. Called Lorna, she is about 30 minutes out. Updated charge and Claudia. 1100 called Lorna to see if she brought clothes? No. I will grab some. Did she bring oxygen? Yes. 1115 brought clothes to patient and gave to school of nursing director. Orders faxed to [facility], should live here around 1130.
--- NOTE | 2016-11-19 10:38 | NUR ---
Significant Event: UP TO CHAIR WITH 2-3 ASSISTS, TOLERATES ACTIVITY FAIR. MEPILEX DRSG TO RIGHT HUMMEROUS D/I, CSM GOOD, SHOULDER ECCHY/EDEMATOUS...ICE TO SHOULDER...HISTORY OF TOTAL HIP IN JUL 2016...VOIDING OK,INC AT TIMES. IS BLIND,HAS SOME VISION IN LEFT EYE, NEEDS ASSIST WITH MEALS..IS ALERT....HAD IJ TO RIGHT SIDE OF NECK,WAS DISCONTINUED TODAY AT 1045NEED TO LEAVE DRSG ON FOR 24 HOURSUSES C-PAP AT NOC AND WHEN NAPPING... Follow up:
== END 2016-11-19 12:14 | disposition disaster alternative care site (69) | DRG 494 ==
LOC: GMSU 01:58 → G3N 02:41 → GMSU 16:15 → G3N 16:15
PROVIDERS: Anesthesiology; Family Medicine; Physician Assistant; ADMIT Orthopaedic Surgery Adult Reconstructive Orthopaedic Surgery
PROC: 0PSC04Z Reposition Right Humeral Head with Internal Fixation Device, Open Approach (ICD-10-PCS; principal; 2016-11-16)
PROC: B246ZZZ Ultrasonography of Right and Left Heart (ICD-10-PCS; principal; 2016-11-16)
PROC: 30233N1 Transfusion of Nonautologous Red Blood Cells into Peripheral Vein, Percutaneous Approach (ICD-10-PCS; principal; 2016-11-16)
DX: S42.201A Unspecified fracture of upper end of right humerus, initial encounter for closed fracture (principal); I48.91 Unspecified atrial fibrillation; I11.0 Hypertensive heart disease with heart failure; I50.9 Heart failure, unspecified; W19.XXXA Unspecified fall, initial encounter; Z91.81 History of falling; E03.9 Hypothyroidism, unspecified; E11.319 Type 2 diabetes mellitus with unspecified diabetic retinopathy without macular edema; E78.5 Hyperlipidemia, unspecified; F32.9 Major depressive disorder, single episode, unspecified; G47.33 Obstructive sleep apnea (adult) (pediatric); H54.0 Blindness, both eyes; J45.909 Unspecified asthma, uncomplicated; K21.9 Gastro-esophageal reflux disease without esophagitis; M19.90 Unspecified osteoarthritis, unspecified site; Z86.73 Personal history of transient ischemic attack (TIA), and cerebral infarction without residual deficits; Z87.81 Personal history of (healed) traumatic fracture; Z96.642 Presence of left artificial hip joint; Z98.61 Coronary angioplasty status
CPT/HCPCS: C1713; J0690; J1940; J2250; J2270; J2405; P9016